=== PATIENT | male | born 1955 | race Two or more races ===

== ENCOUNTER 2018-02-10 22:26 | Emergency (ER) | payer BC ==
[2018-02-10] MEDS ORDERED: Dexamethasone IV* 4 MG/ML 1 ML (4 MG) IM ONE (22:40)
[2018-02-10] MEDS ORDERED: Orphenadrine Citrate IV* 30 MG/ML 2 ML VIAL IM ONE (22:40)
[2018-02-11] MEDS ORDERED: Diazepam SYRINGE* 5 MG/ML 2 ML SYRINGE (10 MG total) IV ONE ×2 (00:30→01:54)
[2018-02-11] MEDS ORDERED: Morphine INJ* 4 MG/ML 1 ML SYRINGE (NEW SYRINGE VERSION) IV ONE (00:30)
[2018-02-11] MEDS ORDERED: Ketorolac INJ* 30 MG/ML 1 ML VIAL IV PUSH PRN (00:30)
[2018-02-11] MEDS ORDERED: Morphine VIAL* 4 MG/ML VIAL (1 ml vial) IV ONE (00:39)
[2018-02-11] MEDS ORDERED: Diazepam INJ (NF) 5 MG/ML 10 ML VIAL (50 MG TOTAL) IV ONE (01:00)
[2018-02-11 01:01] LABS: ABS Basophils 0.1 10^3/ul (0-0.2); ABS Eosinophils 0.1 10^3/ul (0-0.6); ABS Lymphocytes 1.4 10^3/ul (1.0-4.8); ABS Monocytes 0.2 10^3/ul (0-0.8); ABS Nucleated RBC 0 10^3/ul; Eosinophil % 1.2 % (0-6); Hematocrit 46 % (42-52); Hemoglobin 15.7 g/dl (14.0-18.0); Lymphocyte % 17.8 % (25-47); Mean Corpuscular HGB Conc 35 g/dl (31-36); Mean Corpuscular Hemoglobin 31 pg (27-31); Mean Corpuscular Volume 90 fL (80-94); Mean Platelet Volume 8.3 um3 (7.4-10.4); Nucleated Red Blood Cells % 0; Platelet Count 288 10^3/ul (150-450); Red Blood Count 5.07 10^6/ul (4.0-5.4); Red Cell Distribution Width 13 % (10.5-15); White Blood Count 7.7 10^3/ul (3.5-10.8)
[2018-02-11 01:16] LABS: EGFR Non-African American 81.3 (>60)
[2018-02-11 04:51] VITALS: BP 176/89
--- NOTE | 2018-02-11 08:05 | RAD ---
INDICATION: Worsening of chronic low back pain. COMPARISON: Spine radiograph dated June 09, 2013 TECHNIQUE: Contiguous axial sections were obtained beginning lower thoracic vertebra and continuing through the sacrum. Images were reconstructed in the sagittal and coronal planes. FINDINGS: On the sagittal view there is mild straightening of the normal cervical lordosis. There is vertebral body height loss at T12 and L2 that appears to be stable when compared to the 2013 spine radiograph. There is loss of intervertebral disc height at multiple levels most severe at L5/S1 where there is vacuum disc phenomenon. At multiple levels there is broad-based intervertebral disc protrusion combining with facet arthropathy and thickening of the ligamentum flavum to cause varying degrees of neuroforaminal and spinal stenosis. These degenerative changes appear to be most significant at L3/L4, L4/L5 and to a lesser extent L5/S1. The visualized soft tissues do not exhibit any acute abnormalities. 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 If clinically warranted superior characterization of the soft tissues can be made with nonemergent MRI of the lumbar spine.
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
== END 2018-02-11 04:51 | disposition home or self-care (01) ==
LOC: ED 22:26
DX: M54.9 Dorsalgia, unspecified (principal); M54.16 Radiculopathy, lumbar region
CPT/HCPCS: 36415; 72131; 80053; 85025; 96372; 96375; 99283; J1100; J2270; J2360; J3360